=== PATIENT | male | born 2000 | race Asian ===

== ENCOUNTER 2021-12-10 09:21 | Emergency (ER) | payer OTHER ==
[~2021-12-10] VITALS: Ht 170.2 cm; Wt 93.2 kg
[2021-12-10 09:39] VITALS: BP 154/78
[2021-12-10] MEDS ORDERED: ONDANSETRON 4MG 2ML VIAL IV ONE (10:25)
[2021-12-10] MEDS ORDERED: MORPHINE 4 MG/ML 1ML VIAL/SYRINGE IV PRN (10:25)
[2021-12-10] MEDS ORDERED: KETOROLAC 30 MG/ML 1ML VIAL IV ONE (10:25)
[2021-12-10] MEDS ORDERED: MIDAZOLAM INJ 2MG/2ML VIAL (J2250 PER 1MG) IV STA (12:18)
== END 2021-12-10 14:45 | disposition home or self-care (01) ==
LOC: EDBD 09:21 → M ED 09:21
DX: S43.004A Unspecified dislocation of right shoulder joint, initial encounter (principal); X58.XXXA Exposure to other specified factors, initial encounter; Y92.018 Other place in single-family (private) house as the place of occurrence of the external cause
CPT/HCPCS: 23650; 73020; 73030; 96374; 96375; 99284; J1885; J2270; J2405